=== PATIENT | male | born 1995 | race Caucasian/White ===

== ENCOUNTER 2024-03-14 19:07 | Emergency (ER) | payer MEDICAID ==
[2024-03-14] MEDS: Take Home: Amoxicillin/Clavulanate K 875-125 MG Tab, 6 Tab Pack PO ONE (19:36)
[2024-03-14] MEDS: Ketorolac 30 MG/ML SDV IM ONE (19:38)
== END 2024-03-14 20:17 | disposition home or self-care (01) ==
LOC: DL.ED 19:07
DX: K02.9 Dental caries, unspecified (principal); F17.210 Nicotine dependence, cigarettes, uncomplicated
CPT/HCPCS: 96372; 99283; A9270-GY; J1885